=== PATIENT | male | born 1975 | race Caucasian/White ===

== ENCOUNTER → 2016-06-09 | Outpatient (CLI) | payer BC ==
[~2016-06-09] MED LIST: BUPR100T8 PO; FLUO20CA35 PO; GABA-113 PO; LAMO200T38 PO; LISI10TA PO; PANT40TA PO
--- NOTE | 2016-06-09 15:07 | DIAGNOSTIC IMAGING REPORT ---
RIGHT ELBOW MIN 3 VIEWS ROUTINE CLINICAL HISTORY: RIGHT ELBOW PAIN Right COMPARISON: None. DISCUSSION: The bones and joint spaces appear intact. There is no evidence of fracture, dislocation or bony disease. There is no evidence for soft tissue swelling. IMPRESSION: Negative study. Electronically signed by: Brooks Daniel M.D. 06/09/2016 3:05 PM Dictated Date/Time: 06/09/2016 3:03 PM
== END | disposition home or self-care (01) ==
LOC: C.RAD1850 14:51
PROVIDERS: ATTEND Family Medicine
DX: M25.529 Pain in unspecified elbow (principal)